=== PATIENT | male | born 1995 ===

== ENCOUNTER 2021-06-06 08:16 | Emergency (ER) | payer SELFPAY ==
[2021-06-06 09:20] LABS: HEMOGLOBIN 16.3 gm/dl (14.0-17.5); RED BLOOD COUNT 5.61 M/UL (4.20-5.50); WHITE BLOOD COUNT 6.1 K/UL (4.5-11.0)
[2021-06-06 09:40] LABS: BUN/CREATININE RATIO 17 (0-10)
[2021-06-06] MEDS ORDERED: ONDANSETRON ODT4 MG SL (13:52)
[2021-06-06] MEDS ORDERED: TORADOL 10 MG T10 MG PO (13:52)
[2021-06-06] MEDS ORDERED: PROTONIX40 MG PO (14:00)
== END 2021-06-06 14:16 | disposition home or self-care (01) ==
LOC: ER1 08:16
PROVIDERS: Physician Assistant
DX: K82.8 Other specified diseases of gallbladder (principal); R11.2 Nausea with vomiting, unspecified; F17.290 Nicotine dependence, other tobacco product, uncomplicated
CPT/HCPCS: 76705; 80053; 81001; 83690; 85025; 96374; 96375; 99284; J1885; J2405; J7030; Q9967